=== PATIENT | female | born 1990 | race Caucasian/White ===

== ENCOUNTER 2017-06-13 21:03 | Emergency (ER) | payer MEDICAID ==
[2017-06-14] MEDS: SOD CHLORIDE 0.9% 1,000 ML IV (00:15)
[2017-06-14] MEDS: FAMOTIDINE 20 MG INJ IV (00:15)
[2017-06-14] MEDS: ONDANSETRON 4 MG INJ IV (00:15)
[2017-06-14 00:34] LABS: ADD MAN DIFF? NO
[2017-06-14 00:37] LABS: WHITE BLOOD COUNT 11.5 10^3/ul (4.8-10.8)
[2017-06-14 00:37] LABS: BASOPHILS % 0.3 % (0.0-2.0); EOSINOPHILS # 0.1 10^3/ul (0.0-0.5); EOSINOPHILS % 1.2 % (0.0-7.0); HEMATOCRIT 36.8 % (37.0-47.0); HEMOGLOBIN 13.1 g/dl (12.0-16.0); LYMPHOCYTES # 2.6 10^3/ul (0.8-2.9); LYMPHOCYTES % 22.4 % (15.0-51.0); MEAN CORPUSCULAR HEMOGLOBIN 31.2 pg (29.0-33.0); MEAN CORPUSCULAR HGB CONC 35.6 g/dl (32.0-37.0); MEAN CORPUSCULAR VOLUME 87.6 fl (82.0-101.0); MEAN PLATELET VOLUME 9.5 fl (7.4-10.4); MONOCYTE # 0.6 10^3/ul (0.3-0.9); MONOCYTES % 5.1 % (0.0-11.0); NEUTROPHIL # 8.1 10^3/ul (1.6-7.5); NEUTROPHILS % 70.4 % (39.0-77.0); PLATELET COUNT 222 10^3/UL (140-415); RED CELL DISTRIBUTION WIDTH 12.4 % (11.5-14.5)
[2017-06-14 00:53] LABS: ADD UMIC YES; UR ASCORBIC ACID NEGATIVE (NEGATIVE); UR BACTERIA FEW /HPF (NONE SEEN); UR BILIRUBIN (Dip) NEGATIVE (NEGATIVE); UR BLOOD (Dip) NEGATIVE (NEGATIVE); UR CLARITY CLOUDY (CLEAR); UR COLOR YELLOW (YELLOW); UR GLUCOSE (Dip) NEGATIVE (NEGATIVE); UR KETONES (Dip) NEGATIVE (NEGATIVE); UR LEUKOCYTE ESTERASE (Dip) 2+ Leu/ul (NEGATIVE); UR MUCUS MODERATE /HPF (NONE SEEN); UR NITRITE (Dip) POSITIVE (NEGATIVE); UR RBC 1 /HPF (0-5); UR SPECIFIC GRAVITY (Dip) 1.024 (1.003-1.030); UR SQUAMOUS EPITHELIAL CELL FEW /HPF (FEW); UR TOTAL PROTEIN (Dip) NEGATIVE (NEGATIVE); UR UROBILINOGEN (Dip) NEGATIVE (NEGATIVE); UR WBC 13 /HPF (0-5)
[2017-06-14 00:58] LABS: ALANINE AMINOTRANSFERASE 27 IU/L (13-69); ALBUMIN 4.5 g/dl (3.3-4.9); ALBUMIN/GLOBULIN RATIO 1.25; ALKALINE PHOSPHATASE 54 IU/L (42-121); ANION GAP 15 (8-16); ASPARTATE AMINO TRANSFERASE 21 IU/L (15-46); BILIRUBIN,INDIRECT 0.2 mg/dl (0-1.1); BILIRUBIN,TOTAL 0.2 mg/dl (0.2-1.3); BLOOD UREA NITROGEN 6 mg/dl (7-20); CALCIUM 9.9 mg/dl (8.4-10.2); CARBON DIOXIDE 25 mmol/L (21-31); CHLORIDE 103 mmol/L (97-110); CREATININE 0.47 mg/dl (0.44-1.00); GLUCOSE 83 mg/dl (70-220); LIPASE 50 U/L (23-300); POTASSIUM 4.2 mmol/L (3.5-5.1); SODIUM 139 mmol/L (135-144); TOTAL PROTEIN 8.1 g/dl (6.1-8.1)
[2017-06-14] MEDS: CEFTRIAXONE 1 GM/50 ML (PMX) 50 ML IVPB (02:10)
== END 2017-06-14 03:28 | disposition home or self-care (01) ==
LOC: FTE 21:03
DX: O21.0 Mild hyperemesis gravidarum (principal); O23.41 Unspecified infection of urinary tract in pregnancy, first trimester; R10.2 Pelvic and perineal pain; Z3A.13 13 weeks gestation of pregnancy
CPT/HCPCS: 36415; 76801; 80053; 81001; 83690; 84702; 85025; 86900; 86901; 96374; 96375; 99285-25

== ENCOUNTER 2017-10-17 17:05 | Inpatient (IN) | payer MEDICAID ==
[2017-10-17] MEDS: ACETAMINOPHEN 325 MG TAB PO ×2 (17:54→23:07)
[2017-10-17] MEDS: LACTATED RINGER'S 1,000 ML IV (17:54)
[2017-10-17] MEDS ORDERED: IBUPROFEN 600 MG TAB PO (18:00)
[2017-10-17] MEDS ORDERED: LIDOCAINE 1% (MPF) 30 ML INJ INJ (18:00)
[2017-10-17] MEDS ORDERED: CARBOPROST 250 MCG INJ IM (18:00)
[2017-10-17] MEDS ORDERED: METHYLERGONOVINE 0.2 MG INJ IM (18:00)
[2017-10-17] MEDS ORDERED: BUTORPHANOL 2 MG INJ IV (18:00)
[2017-10-17] MEDS ORDERED: MISOPROSTOL 200 MCG TAB PR (18:00)
[2017-10-17] MEDS ORDERED: OXYTOCIN 30 UNITS/LR 500 ML IV ×3 (18:00)
[2017-10-17] MEDS ORDERED: MAGNESIUM SULFATE 4 GM/100 ML 100 ML (18:26)
[2017-10-17] MEDS: MAGNESIUM SULFATE 4 GM/100 ML 100 ML IV (18:38)
[2017-10-17] MEDS: MAGNESIUM SULFATE 20 GM/500 ML 500 ML IV (19:17)
[2017-10-17 19:21] LABS: ADD UMIC YES; UR ASCORBIC ACID NEGATIVE (NEGATIVE); UR BACTERIA FEW /HPF (NONE SEEN); UR BILIRUBIN (Dip) NEGATIVE (NEGATIVE); UR BLOOD (Dip) 2+ mg/dL (NEGATIVE); UR CLARITY CLOUDY (CLEAR); UR COLOR YELLOW (YELLOW); UR GLUCOSE (Dip) NEGATIVE (NEGATIVE); UR KETONES (Dip) 1+ mg/dL (NEGATIVE); UR LEUKOCYTE ESTERASE (Dip) 3+ Leu/ul (NEGATIVE); UR MUCUS FEW /HPF (NONE SEEN); UR NITRITE (Dip) NEGATIVE (NEGATIVE); UR RBC 13 /HPF (0-5); UR SPECIFIC GRAVITY (Dip) 1.014 (1.003-1.030); UR SQUAMOUS EPITHELIAL CELL FEW /HPF (FEW); UR TOTAL PROTEIN (Dip) 2+ mg/dl (NEGATIVE); UR UROBILINOGEN (Dip) NEGATIVE (NEGATIVE); UR WBC 77 /HPF (0-5)
[2017-10-17 19:29] LABS: ADD MAN DIFF? NO
[2017-10-17 19:33] LABS: WHITE BLOOD COUNT 12.6 10^3/ul (4.8-10.8)
[2017-10-17 19:33] LABS: BASOPHILS % 0.2 % (0.0-2.0); HEMATOCRIT 36.5 % (37.0-47.0); HEMOGLOBIN 12.2 g/dl (12.0-16.0); LYMPHOCYTES # 0.9 10^3/ul (0.8-2.9); MEAN CORPUSCULAR HEMOGLOBIN 30.1 pg (29.0-33.0); MEAN CORPUSCULAR HGB CONC 33.4 g/dl (32.0-37.0); MEAN CORPUSCULAR VOLUME 90.1 fl (82.0-101.0); MEAN PLATELET VOLUME 10.3 fl (7.4-10.4); MONOCYTE # 0.3 10^3/ul (0.3-0.9); MONOCYTES % 2.3 % (0.0-11.0); NEUTROPHIL # 11.3 10^3/ul (1.6-7.5); NEUTROPHILS % 89.6 % (39.0-77.0); PLATELET COUNT 179 10^3/UL (140-415); RED BLOOD COUNT 4.05 10^6/ul (4.20-5.40)
[2017-10-17] MEDS: AMPICILLIN 2 GM/NS (PMX) 100 ML IVPB (19:42)
[2017-10-17 19:53] LABS: PROTIME 13.3 Sec (11.9-14.9)
[2017-10-17 19:54] LABS: PARTIAL THROMBOPLASTIN TIME 30.5 Sec (25.0-35.0)
[2017-10-17 20:02] LABS: ALANINE AMINOTRANSFERASE 17 IU/L (13-69); ALBUMIN/GLOBULIN RATIO 1.11; ALKALINE PHOSPHATASE 175 IU/L (42-121); ANION GAP 22 (8-16); ASPARTATE AMINO TRANSFERASE 26 IU/L (15-46); BILIRUBIN,INDIRECT 0.7 mg/dl (0-1.1); BILIRUBIN,TOTAL 0.7 mg/dl (0.2-1.3); BLOOD UREA NITROGEN 5 mg/dl (7-20); CALCIUM 8.9 mg/dl (8.4-10.2); CARBON DIOXIDE 16 mmol/L (21-31); CHLORIDE 103 mmol/L (97-110); CREATININE 0.57 mg/dl (0.44-1.00); GLUCOSE 91 mg/dl (70-220); POTASSIUM 4.3 mmol/L (3.5-5.1); SODIUM 137 mmol/L (135-144); TOTAL PROTEIN 7.6 g/dl (6.1-8.1)
[2017-10-17 20:39] LABS: HEPATITIS B SURFACE ANTIGEN NEGATIVE (NEGATIVE)
[2017-10-17] MEDS: GENTAMICIN 120 MG/NS (PMX) 100 ML IVPB (21:08)
[2017-10-17] MEDS: TERBUTALINE 1 MG/ML INJ SC (22:30)
[2017-10-18] MEDS: CLINDAMYCIN 900 MG/D5W (PMX) 50 ML IVPB ×2 (00:24→09:01)
[2017-10-18 00:27] LABS: ADD MAN DIFF? NO
[2017-10-18 00:30] LABS: ABNORMAL IP MESSAGE 1; BASOPHILS % 0.2 % (0.0-2.0); HEMATOCRIT 31.2 % (37.0-47.0); HEMOGLOBIN 10.6 g/dl (12.0-16.0); LYMPHOCYTES # 0.4 10^3/ul (0.8-2.9); LYMPHOCYTES % 3.4 % (15.0-51.0); MEAN CORPUSCULAR HEMOGLOBIN 30.5 pg (29.0-33.0); MEAN CORPUSCULAR VOLUME 89.7 fl (82.0-101.0); MEAN PLATELET VOLUME 9.6 fl (7.4-10.4); MONOCYTE # 0.3 10^3/ul (0.3-0.9); NEUTROPHIL # 11.7 10^3/ul (1.6-7.5); NEUTROPHILS % 93.5 % (39.0-77.0); PLATELET COUNT 140 10^3/UL (140-415); RED BLOOD COUNT 3.48 10^6/ul (4.20-5.40)
[2017-10-18 00:30] LABS: WHITE BLOOD COUNT 12.5 10^3/ul (4.8-10.8)
[2017-10-18 00:41] LABS: POSITIVE DIFF @See below
[2017-10-18 00:48] LABS: MAGNESIUM 5.6 mg/dl (1.7-2.5)
[2017-10-18] MEDS: ACETAMINOPHEN 1000MG/100ML IV 100 ML IVPB (01:37)
[2017-10-18] MEDS: AMPICILLIN 2 GM/NS (PMX) 100 ML IVPB ×4 (02:25→19:58)
[2017-10-18 02:33] LABS: LACTIC ACID 3.9 mmol/L (0.5-2.0)
[2017-10-18] MEDS: GENTAMICIN 80 MG/NS (PMX) 50 ML IVPB ×3 (05:13→21:24)
[2017-10-18] MEDS: MAGNESIUM SULFATE 20 GM/500 ML 500 ML IV ×2 (05:20→16:08)
[2017-10-18] MEDS: LACTATED RINGER'S 1,000 ML IV (06:43)
[2017-10-18 07:44] LABS: MAGNESIUM 6.5 mg/dl (1.7-2.5)
[2017-10-18] MEDS: BETAMET NA PHOS/AC(6 MG/ML) 5ML INJ IM (10:37)
[2017-10-18 13:13] LABS: MAGNESIUM 6.3 mg/dl (1.7-2.5)
[2017-10-18 18:22] LABS: MAGNESIUM 5.9 mg/dl (1.7-2.5)
[2017-10-18 20:56] LABS: RAPID PLASMA REAGIN NONREACTIVE (NR)
[2017-10-19] MEDS: LACTATED RINGER'S 1,000 ML IV ×2 (00:08→13:09)
[2017-10-19] MEDS: AMPICILLIN 2 GM/NS (PMX) 100 ML IVPB ×3 (02:02→14:15)
[2017-10-19] MEDS: GENTAMICIN 80 MG/NS (PMX) 50 ML IVPB ×2 (04:48→13:08)
[2017-10-19] MEDS: MAGNESIUM SULFATE 20 GM/500 ML 500 ML IV (04:50)
[2017-10-19 06:21] LABS: ADD MAN DIFF? NO
[2017-10-19 06:24] LABS: BASOPHILS % 0.1 % (0.0-2.0); HEMATOCRIT 28.5 % (37.0-47.0); HEMOGLOBIN 9.7 g/dl (12.0-16.0); LYMPHOCYTES # 0.6 10^3/ul (0.8-2.9); LYMPHOCYTES % 6.6 % (15.0-51.0); MEAN CORPUSCULAR HEMOGLOBIN 30.6 pg (29.0-33.0); MEAN CORPUSCULAR VOLUME 89.9 fl (82.0-101.0); MONOCYTE # 0.6 10^3/ul (0.3-0.9); MONOCYTES % 6.5 % (0.0-11.0); NEUTROPHIL # 7.9 10^3/ul (1.6-7.5); NEUTROPHILS % 85.8 % (39.0-77.0); PLATELET COUNT 128 10^3/UL (140-415); RED BLOOD COUNT 3.17 10^6/ul (4.20-5.40); RED CELL DISTRIBUTION WIDTH 11.9 % (11.5-14.5)
[2017-10-19 06:24] LABS: WHITE BLOOD COUNT 9.2 10^3/ul (4.8-10.8)
[2017-10-19] MEDS: BETAMET NA PHOS/AC(6 MG/ML) 5ML INJ IM (10:08)
[2017-10-19 15:51] LABS: MAGNESIUM 5.2 mg/dl (1.7-2.5)
[2017-10-19] MEDS: SOD CHLORIDE 0.9% 1,000 ML IV (17:05)
[2017-10-19] MEDS: NIFEdipine 10 MG CAP PO (17:08)
[2017-10-19] MEDS: CEFTRIAXONE 2 GM/50 ML (PMX) 50 ML IVPB (17:19)
[2017-10-20] MEDS: SOD CHLORIDE 0.9% 1,000 ML IV ×2 (06:00→16:31)
[2017-10-20] MEDS: NIFEdipine 10 MG CAP PO ×4 (06:00→18:46)
[2017-10-20 06:18] LABS: ADD MAN DIFF? NO
[2017-10-20 06:28] LABS: WHITE BLOOD COUNT 9.5 10^3/ul (4.8-10.8)
[2017-10-20 06:28] LABS: BASOPHILS % 0.1 % (0.0-2.0); HEMATOCRIT 27.7 % (37.0-47.0); HEMOGLOBIN 9.2 g/dl (12.0-16.0); LYMPHOCYTES # 0.8 10^3/ul (0.8-2.9); LYMPHOCYTES % 8.2 % (15.0-51.0); MEAN CORPUSCULAR HEMOGLOBIN 30.1 pg (29.0-33.0); MEAN CORPUSCULAR HGB CONC 33.2 g/dl (32.0-37.0); MEAN CORPUSCULAR VOLUME 90.5 fl (82.0-101.0); MEAN PLATELET VOLUME 9.9 fl (7.4-10.4); MONOCYTE # 0.8 10^3/ul (0.3-0.9); MONOCYTES % 8.5 % (0.0-11.0); NEUTROPHIL # 7.8 10^3/ul (1.6-7.5); NEUTROPHILS % 81.7 % (39.0-77.0); PLATELET COUNT 140 10^3/UL (140-415); RED BLOOD COUNT 3.06 10^6/ul (4.20-5.40); RED CELL DISTRIBUTION WIDTH 12.3 % (11.5-14.5)
[2017-10-20] MEDS: TERBUTALINE 1 MG/ML INJ SC ×2 (07:12→09:48)
[2017-10-20] MEDS: GUAIFENESIN/DM 5ML CUP PO ×4 (09:45→21:05)
[2017-10-20 16:10] LABS: LACTIC ACID 1.5 mmol/L (0.5-2.0)
[2017-10-20] MEDS: CEFTRIAXONE 2 GM/50 ML (PMX) 50 ML IVPB (16:31)
[2017-10-21] MEDS: NIFEdipine 10 MG CAP PO ×5 (00:29→23:45)
[2017-10-21] MEDS: GUAIFENESIN/DM 5ML CUP PO ×6 (01:00→21:33)
[2017-10-21] MEDS: SOD CHLORIDE 0.9% 1,000 ML IV ×2 (05:12→13:26)
[2017-10-21 08:15] LABS: ADD MAN DIFF? NO
[2017-10-21 08:27] LABS: WHITE BLOOD COUNT 8.7 10^3/ul (4.8-10.8)
[2017-10-21 08:27] LABS: BASOPHILS % 0.1 % (0.0-2.0); EOSINOPHILS % 0.1 % (0.0-7.0); HEMATOCRIT 27.8 % (37.0-47.0); HEMOGLOBIN 9.1 g/dl (12.0-16.0); LYMPHOCYTES # 1.2 10^3/ul (0.8-2.9); LYMPHOCYTES % 13.5 % (15.0-51.0); MEAN CORPUSCULAR HEMOGLOBIN 30.1 pg (29.0-33.0); MEAN CORPUSCULAR HGB CONC 32.7 g/dl (32.0-37.0); MEAN CORPUSCULAR VOLUME 92.1 fl (82.0-101.0); MONOCYTE # 0.7 10^3/ul (0.3-0.9); MONOCYTES % 8.5 % (0.0-11.0); NEUTROPHIL # 6.7 10^3/ul (1.6-7.5); NEUTROPHILS % 76.3 % (39.0-77.0); NUCLEATED RED BLOOD CELLS% 0.2 /100WBC (0.0-0.0); PLATELET COUNT 144 10^3/UL (140-415); RED BLOOD COUNT 3.02 10^6/ul (4.20-5.40); RED CELL DISTRIBUTION WIDTH 12.2 % (11.5-14.5)
[2017-10-21] MEDS: CEFTRIAXONE 2 GM/50 ML (PMX) 50 ML IVPB (17:21)
[2017-10-22] MEDS: SOD CHLORIDE 0.9% 1,000 ML IV ×2 (00:10→12:18)
[2017-10-22] MEDS: GUAIFENESIN/DM 5ML CUP PO ×6 (01:00→20:56)
[2017-10-22] MEDS: NIFEdipine 10 MG CAP PO ×4 (05:35→23:39)
[2017-10-22] MEDS: CEFTRIAXONE 2 GM/50 ML (PMX) 50 ML IVPB (16:50)
[2017-10-23] MEDS: SOD CHLORIDE 0.9% 1,000 ML IV ×2 (00:55→14:35)
[2017-10-23] MEDS: GUAIFENESIN/DM 5ML CUP PO ×5 (00:59→17:35)
[2017-10-23] MEDS: NIFEdipine 10 MG CAP PO ×3 (05:57→17:53)
[2017-10-23] MEDS ORDERED: CIPROFLOXACIN 500 MG TAB PO (22:00)
== END 2017-10-23 19:20 | disposition home or self-care (01) | DRG 781 ==
LOC: OBT 17:05 → L-D 10-19 20:11 → OBT 17:47 → PP1 10-20 22:52 → L-D 17:47
DX: O23.03 Infections of kidney in pregnancy, third trimester (principal); J98.11 Atelectasis; Z3A.34 34 weeks gestation of pregnancy
CPT/HCPCS: 36415; 71046; 76815; 76818; 80053; 81001; 82962; 83605; 83735; 85025; 85610; 85730; 86592; 86850; 86900; 86901; 87040; 87086; 87340; 96360

== ENCOUNTER 2017-11-13 21:51 | Outpatient (CLI) | payer MEDICAID ==
[2017-11-13] MEDS ORDERED: TERBUTALINE 1 ML (22:46)
[2017-11-13] MEDS: LACTATED RINGER'S 1,000 ML IV ×2 (22:59→23:51)
[2017-11-13] MEDS: TERBUTALINE 1 MG/ML INJ SC (23:02)
[2017-11-13 23:21] LABS: ADD UMIC NO; UR ASCORBIC ACID 40 mg/dL (NEGATIVE); UR BILIRUBIN (Dip) NEGATIVE (NEGATIVE); UR BLOOD (Dip) NEGATIVE (NEGATIVE); UR CLARITY CLEAR (CLEAR); UR COLOR YELLOW (YELLOW); UR GLUCOSE (Dip) 1+ mg/dL (NEGATIVE); UR KETONES (Dip) NEGATIVE (NEGATIVE); UR LEUKOCYTE ESTERASE (Dip) NEGATIVE Leu/ul (NEGATIVE); UR NITRITE (Dip) NEGATIVE (NEGATIVE); UR SPECIFIC GRAVITY (Dip) 1.017 (1.003-1.030); UR TOTAL PROTEIN (Dip) NEGATIVE (NEGATIVE); UR UROBILINOGEN (Dip) NEGATIVE (NEGATIVE)
[2017-11-14] MEDS: TERBUTALINE 1 MG/ML INJ SC (00:49)
== END 2017-11-14 02:45 | disposition home or self-care (01) ==
LOC: OBT 21:51 → L-D 21:51
DX: O62.9 Abnormality of forces of labor, unspecified (principal); Z3A.34 34 weeks gestation of pregnancy
CPT/HCPCS: 36415; 81003; 87086; 96360; 96361; 96372

== ENCOUNTER 2017-11-20 11:24 | Outpatient (CLI) | payer MEDICAID ==
[2017-11-20 12:31] LABS: ADD UMIC YES; UR AMORPHOUS CRYSTAL FEW /HPF (NONE SEEN); UR ASCORBIC ACID 40 mg/dL (NEGATIVE); UR BACTERIA MANY /HPF (NONE SEEN); UR BILIRUBIN (Dip) NEGATIVE (NEGATIVE); UR BLOOD (Dip) NEGATIVE (NEGATIVE); UR CLARITY CLOUDY (CLEAR); UR COLOR YELLOW (YELLOW); UR GLUCOSE (Dip) NEGATIVE (NEGATIVE); UR KETONES (Dip) NEGATIVE (NEGATIVE); UR LEUKOCYTE ESTERASE (Dip) 2+ Leu/ul (NEGATIVE); UR NITRITE (Dip) NEGATIVE (NEGATIVE); UR RBC 4 /HPF (0-5); UR SPECIFIC GRAVITY (Dip) 1.014 (1.003-1.030); UR SQUAMOUS EPITHELIAL CELL MODERATE /HPF (FEW); UR TOTAL PROTEIN (Dip) NEGATIVE (NEGATIVE); UR UROBILINOGEN (Dip) 1+ mg/dL (NEGATIVE); UR WBC 13 /HPF (0-5)
[2017-11-20] MEDS: BETAMET NA PHOS/AC(6 MG/ML) 5ML INJ IM (12:44)
[2017-11-20] MEDS: LACTATED RINGER'S 1,000 ML IV (12:44)
[2017-11-20] MEDS: TERBUTALINE 1 MG/ML INJ SC ×2 (12:44→13:51)
[2017-11-20 12:49] LABS: ADD MAN DIFF? NO
[2017-11-20 12:50] LABS: BASOPHIL # 0.1 10^3/ul (0.0-0.1); BASOPHILS % 0.6 % (0.0-2.0); EOSINOPHILS # 0.1 10^3/ul (0.0-0.5); EOSINOPHILS % 1.6 % (0.0-7.0); HEMATOCRIT 31.4 % (37.0-47.0); HEMOGLOBIN 10.3 g/dl (12.0-16.0); LYMPHOCYTES # 1.7 10^3/ul (0.8-2.9); MEAN CORPUSCULAR HEMOGLOBIN 28.5 pg (29.0-33.0); MEAN CORPUSCULAR HGB CONC 32.8 g/dl (32.0-37.0); MEAN CORPUSCULAR VOLUME 86.7 fl (82.0-101.0); MONOCYTE # 0.6 10^3/ul (0.3-0.9); MONOCYTES % 7.4 % (0.0-11.0); NEUTROPHIL # 5.8 10^3/ul (1.6-7.5); NEUTROPHILS % 69.1 % (39.0-77.0); PLATELET COUNT 165 10^3/UL (140-415); RED BLOOD COUNT 3.62 10^6/ul (4.20-5.40); RED CELL DISTRIBUTION WIDTH 12.8 % (11.5-14.5)
[2017-11-20 12:50] LABS: WHITE BLOOD COUNT 8.4 10^3/ul (4.8-10.8)
[2017-11-20 13:12] LABS: ALANINE AMINOTRANSFERASE 22 IU/L (13-69); ALBUMIN 3.2 g/dl (3.3-4.9); ALBUMIN/GLOBULIN RATIO 1.03; ALKALINE PHOSPHATASE 205 IU/L (42-121); ANION GAP 11 (8-16); ASPARTATE AMINO TRANSFERASE 27 IU/L (15-46); BILIRUBIN,INDIRECT 0.3 mg/dl (0-1.1); BILIRUBIN,TOTAL 0.3 mg/dl (0.2-1.3); BLOOD UREA NITROGEN 7 mg/dl (7-20); CALCIUM 8.7 mg/dl (8.4-10.2); CARBON DIOXIDE 22 mmol/L (21-31); CHLORIDE 110 mmol/L (97-110); CREATININE 0.75 mg/dl (0.44-1.00); GLUCOSE 92 mg/dl (70-220); POTASSIUM 4.3 mmol/L (3.5-5.1); SODIUM 139 mmol/L (135-144); TOTAL PROTEIN 6.3 g/dl (6.1-8.1)
[2017-11-20 13:27] LABS: PROTIME 12.2 Sec (11.9-14.9)
[2017-11-20 13:28] LABS: PARTIAL THROMBOPLASTIN TIME 26.8 Sec (25.0-35.0)
== END 2017-11-20 15:40 | disposition home or self-care (01) ==
LOC: OBT 11:24 → L-D 11:24 → OBT 15:40
DX: O62.9 Abnormality of forces of labor, unspecified (principal); Z3A.36 36 weeks gestation of pregnancy
CPT/HCPCS: 36415; 76818; 80053; 81001; 84560; 85025; 85384; 85610; 85730; 87086; 96360; 96361; 96372

== ENCOUNTER 2017-11-21 11:53 | Outpatient (CLI) | payer MEDICAID ==
[2017-11-21] MEDS: BETAMET NA PHOS/AC(6 MG/ML) 5ML INJ IM (12:25)
== END 2017-11-21 13:00 | disposition home or self-care (01) ==
LOC: OBT 11:53 → L-D 11:53 → OBT 13:00
DX: O36.8930 Maternal care for other specified fetal problems, third trimester, not applicable or unspecified (principal); Z3A.36 36 weeks gestation of pregnancy
CPT/HCPCS: 96372

== ENCOUNTER 2017-11-25 16:13 | Outpatient (CLI) | payer MEDICAID ==
[2017-11-25] MEDS: TERBUTALINE 1 MG/ML INJ SC (19:13)
[2017-11-25 19:39] LABS: ADD UMIC YES; UR ASCORBIC ACID NEGATIVE (NEGATIVE); UR BACTERIA FEW /HPF (NONE SEEN); UR BILIRUBIN (Dip) NEGATIVE (NEGATIVE); UR BLOOD (Dip) NEGATIVE (NEGATIVE); UR CLARITY CLOUDY (CLEAR); UR COLOR YELLOW (YELLOW); UR GLUCOSE (Dip) NEGATIVE (NEGATIVE); UR KETONES (Dip) TRACE mg/dL (NEGATIVE); UR LEUKOCYTE ESTERASE (Dip) 1+ Leu/ul (NEGATIVE); UR MUCUS FEW /HPF (NONE SEEN); UR NITRITE (Dip) NEGATIVE (NEGATIVE); UR RBC 1 /HPF (0-5); UR SPECIFIC GRAVITY (Dip) 1.023 (1.003-1.030); UR SQUAMOUS EPITHELIAL CELL MODERATE /HPF (FEW); UR TOTAL PROTEIN (Dip) NEGATIVE (NEGATIVE); UR UROBILINOGEN (Dip) 2+ mg/dL (NEGATIVE); UR WBC 17 /HPF (0-5)
== END 2017-11-25 21:17 | disposition home or self-care (01) ==
LOC: OBT 16:13 → L-D 16:14 → OBT 21:17
DX: O62.9 Abnormality of forces of labor, unspecified (principal); Z3A.36 36 weeks gestation of pregnancy
CPT/HCPCS: 81001; 87086

== ENCOUNTER 2017-11-30 07:39 | Inpatient (IN) | payer MEDICAID ==
[2017-11-30] MEDS ORDERED: MINERAL OIL LIGHT 10 ML VIAL TOP (09:00)
[2017-11-30] MEDS ORDERED: IBUPROFEN 600 MG TAB PO (09:00)
[2017-11-30] MEDS ORDERED: CARBOPROST 250 MCG INJ IM (09:00)
[2017-11-30] MEDS ORDERED: OXYTOCIN 30 UNITS/LR 500 ML IV (09:00)
[2017-11-30] MEDS ORDERED: LIDOCAINE 1% (MPF) 30 ML INJ INJ (09:00)
[2017-11-30] MEDS ORDERED: METHYLERGONOVINE 0.2 MG INJ IM (09:00)
[2017-11-30] MEDS ORDERED: MISOPROSTOL 200 MCG TAB PR (09:00)
[2017-11-30] MEDS: LACTATED RINGER'S 1,000 ML IV* ×3 (09:18→23:12)
[2017-11-30 09:23] LABS: ADD MAN DIFF? NO
[2017-11-30 09:31] LABS: BASOPHIL # 0.1 10^3/ul (0.0-0.1); BASOPHILS % 0.4 % (0.0-2.0); EOSINOPHILS # 0.1 10^3/ul (0.0-0.5); EOSINOPHILS % 0.9 % (0.0-7.0); HEMATOCRIT 33.1 % (37.0-47.0); HEMOGLOBIN 10.9 g/dl (12.0-16.0); LYMPHOCYTES # 2.6 10^3/ul (0.8-2.9); LYMPHOCYTES % 20.5 % (15.0-51.0); MEAN CORPUSCULAR HEMOGLOBIN 28.4 pg (29.0-33.0); MEAN CORPUSCULAR HGB CONC 32.9 g/dl (32.0-37.0); MEAN CORPUSCULAR VOLUME 86.2 fl (82.0-101.0); MEAN PLATELET VOLUME 11.5 fl (7.4-10.4); MONOCYTES % 7.9 % (0.0-11.0); NEUTROPHIL # 8.7 10^3/ul (1.6-7.5); NEUTROPHILS % 68.6 % (39.0-77.0); PLATELET COUNT 143 10^3/UL (140-415); RED BLOOD COUNT 3.84 10^6/ul (4.20-5.40); RED CELL DISTRIBUTION WIDTH 13.6 % (11.5-14.5)
[2017-11-30 09:31] LABS: WHITE BLOOD COUNT 12.6 10^3/ul (4.8-10.8)
[2017-11-30 09:52] LABS: INR 0.87; PARTIAL THROMBOPLASTIN TIME 26.9 Sec (25.0-35.0); PROTIME 11.9 Sec (11.9-14.9); PT RATIO 0.9
[2017-11-30 21:42] LABS: HEPATITIS B SURFACE ANTIGEN NEGATIVE (NEGATIVE)
[2017-11-30 21:43] LABS: RAPID PLASMA REAGIN NONREACTIVE (NR)
[2017-11-30 23:22] LABS: ADD UMIC YES; UR AMORPHOUS CRYSTAL FEW /HPF (NONE SEEN); UR ASCORBIC ACID NEGATIVE (NEGATIVE); UR BACTERIA FEW /HPF (NONE SEEN); UR BILIRUBIN (Dip) NEGATIVE (NEGATIVE); UR BLOOD (Dip) 3+ mg/dL (NEGATIVE); UR CLARITY SLIGHTLY CLOUDY (CLEAR); UR COLOR YELLOW (YELLOW); UR GLUCOSE (Dip) NEGATIVE (NEGATIVE); UR KETONES (Dip) NEGATIVE (NEGATIVE); UR LEUKOCYTE ESTERASE (Dip) 3+ Leu/ul (NEGATIVE); UR NITRITE (Dip) NEGATIVE (NEGATIVE); UR RBC 69 /HPF (0-5); UR SPECIFIC GRAVITY (Dip) 1.008 (1.003-1.030); UR SQUAMOUS EPITHELIAL CELL MODERATE /HPF (FEW); UR TOTAL PROTEIN (Dip) NEGATIVE (NEGATIVE); UR UROBILINOGEN (Dip) NEGATIVE (NEGATIVE); UR WBC 85 /HPF (0-5)
[2017-12-01] MEDS: LACTATED RINGER'S 1,000 ML IV* ×3 (07:22→22:22)
[2017-12-01] MEDS: URSODIOL 300 MG CAP PO (11:09)
[2017-12-01] MEDS ORDERED: FENTAnyl 2MCG/ML-ROPIV 0.2% 100 ML (12:30)
[2017-12-01] MEDS ORDERED: LACTATED RINGER'S 1,000 ML IV (15:13)
[2017-12-01] MEDS ORDERED: IBUPROFEN 600 MG TAB PO ×2 (15:30→21:00)
[2017-12-01] MEDS ORDERED: FENTAnyl 2MCG/ML-ROPIV 0.2% 100 ML BAG EPI (16:00)
[2017-12-01] MEDS ORDERED: NALOXONE (0.4 MG/ML) INJ IV (16:00)
[2017-12-01] MEDS: OXYTOCIN 30 UNITS/LR 500 ML IV ×2 (17:06→17:48)
[2017-12-01 18:07] LABS: ALANINE AMINOTRANSFERASE 22 IU/L (13-69); ALBUMIN 2.9 g/dl (3.3-4.9); ALBUMIN/GLOBULIN RATIO 0.96; ALKALINE PHOSPHATASE 228 IU/L (42-121); ANION GAP 13 (8-16); ASPARTATE AMINO TRANSFERASE 30 IU/L (15-46); BILIRUBIN,INDIRECT 0.6 mg/dl (0-1.1); BILIRUBIN,TOTAL 0.6 mg/dl (0.2-1.3); BLOOD UREA NITROGEN 9 mg/dl (7-20); CALCIUM 8.8 mg/dl (8.4-10.2); CARBON DIOXIDE 18 mmol/L (21-31); CHLORIDE 112 mmol/L (97-110); CREATININE 0.62 mg/dl (0.44-1.00); GLUCOSE 96 mg/dl (70-220); SODIUM 139 mmol/L (135-144); TOTAL PROTEIN 5.9 g/dl (6.1-8.1); URIC ACID 7.2 mg/dl (3.1-7.9)
[2017-12-01] MEDS: IBUPROFEN 600 MG TAB PO (20:46)
[2017-12-01] MEDS: BENZOCAINE 20% 56 ML SPRAY TOP (20:46)
[2017-12-01] MEDS: SENNA/DOCUSATE NA (8.6MG/50MG) TAB PO (20:46)
[2017-12-01] MEDS: WITCH HAZEL/GLYCERIN PAD PR (20:46)
[2017-12-01] MEDS: MAGNESIUM HYDROXIDE 30ML CUP PO (20:46)
[2017-12-01] MEDS: LANOLIN 7 GM TUBE TOP (20:46)
[2017-12-01] MEDS ORDERED: DIBUCAINE 1% 30 GM OINT PR (21:00)
[2017-12-01] MEDS ORDERED: MISOPROSTOL 200 MCG TAB PR (21:00)
[2017-12-01] MEDS ORDERED: HYDROCODONE/APAP (5/325) TAB PO ×2 (21:00)
[2017-12-01] MEDS ORDERED: METHYLERGONOVINE 0.2 MG INJ IM (21:00)
[2017-12-01] MEDS ORDERED: ZOLPIDEM 5 MG TAB PO (21:00)
[2017-12-01] MEDS ORDERED: OXYTOCIN 30 UNITS/LR 500 ML IV (21:00)
[2017-12-01] MEDS ORDERED: CARBOPROST 250 MCG INJ IM (21:00)
[2017-12-02] MEDS: CEPHALEXIN 500 MG CAP PO ×5 (00:14→23:54)
[2017-12-02] MEDS: IBUPROFEN 600 MG TAB PO ×4 (05:57→21:00)
[2017-12-02] MEDS: LACTATED RINGER'S 1,000 ML IV* (06:10)
[2017-12-02] MEDS: SENNA/DOCUSATE NA (8.6MG/50MG) TAB PO ×2 (09:10→21:00)
[2017-12-02] MEDS: MAGNESIUM HYDROXIDE 30ML CUP PO ×2 (09:10→21:00)
[2017-12-02 11:55] LABS: ADD MAN DIFF? NO
[2017-12-02 12:15] LABS: BASOPHIL # 0.1 10^3/ul (0.0-0.1); BASOPHILS % 0.3 % (0.0-2.0); EOSINOPHILS % 0.3 % (0.0-7.0); HEMOGLOBIN 9.8 g/dl (12.0-16.0); LYMPHOCYTES # 2.3 10^3/ul (0.8-2.9); LYMPHOCYTES % 15.1 % (15.0-51.0); MEAN CORPUSCULAR HEMOGLOBIN 28.3 pg (29.0-33.0); MEAN CORPUSCULAR HGB CONC 32.7 g/dl (32.0-37.0); MEAN CORPUSCULAR VOLUME 86.7 fl (82.0-101.0); MEAN PLATELET VOLUME 11.2 fl (7.4-10.4); MONOCYTE # 1.1 10^3/ul (0.3-0.9); MONOCYTES % 6.9 % (0.0-11.0); NEUTROPHIL # 11.8 10^3/ul (1.6-7.5); NEUTROPHILS % 76.5 % (39.0-77.0); PLATELET COUNT 119 10^3/UL (140-415); RED BLOOD COUNT 3.46 10^6/ul (4.20-5.40); RED CELL DISTRIBUTION WIDTH 13.7 % (11.5-14.5)
[2017-12-02 12:15] LABS: WHITE BLOOD COUNT 15.5 10^3/ul (4.8-10.8)
[2017-12-03] MEDS: IBUPROFEN 600 MG TAB PO ×2 (04:00→09:11)
[2017-12-03] MEDS: CEPHALEXIN 500 MG CAP PO ×2 (05:35→12:03)
[2017-12-03] MEDS: DIPHTH/TET/ACEL PERTUSS (ADULT) 0.5 ML VIAL IM* (09:11)
[2017-12-03] MEDS: VARICELLA VACCINE LIVE/PF 1,350 UNIT/0.5 ML ML SC* (09:11)
[2017-12-03] MEDS: SENNA/DOCUSATE NA (8.6MG/50MG) TAB PO (09:11)
[2017-12-03] MEDS: MEASLES,MUMPS,RUBELLA VACCINE INJ SC* (09:11)
[2017-12-03] MEDS: MAGNESIUM HYDROXIDE 30ML CUP PO (09:11)
[2017-12-03 11:07] LABS: ADD MAN DIFF? NO
[2017-12-03 11:13] LABS: BASOPHILS % 0.3 % (0.0-2.0); EOSINOPHILS # 0.1 10^3/ul (0.0-0.5); EOSINOPHILS % 0.4 % (0.0-7.0); MEAN CORPUSCULAR HEMOGLOBIN 28.5 pg (29.0-33.0); MEAN CORPUSCULAR HGB CONC 32.1 g/dl (32.0-37.0); MEAN CORPUSCULAR VOLUME 88.6 fl (82.0-101.0); MONOCYTE # 0.7 10^3/ul (0.3-0.9); MONOCYTES % 6.1 % (0.0-11.0); NEUTROPHILS % 75.3 % (39.0-77.0); PLATELET COUNT 129 10^3/UL (140-415); RED BLOOD COUNT 3.16 10^6/ul (4.20-5.40)
== END 2017-12-03 14:25 | disposition home or self-care (01) | DRG 775 ==
LOC: OBT 07:39 → PP1 12-01 19:58 → L-D 07:40 → OBT 08:17 → L-D 08:17
PROVIDERS: Obstetrics & Gynecology
PROC: 4A1HXCZ Monitoring of Products of Conception, Cardiac Rate, External Approach (ICD-10-PCS; 2017-11-30)
PROC: 10E0XZZ Delivery of Products of Conception, External Approach (ICD-10-PCS; principal; 2017-12-01)
PROC: 0KQM0ZZ Repair Perineum Muscle, Open Approach (ICD-10-PCS; 2017-12-01)
DX: O70.1 Second degree perineal laceration during delivery (principal); Z37.0 Single live birth; Z3A.37 37 weeks gestation of pregnancy
CPT/HCPCS: 62319; 80053; 81001; 84560; 85025; 85384; 85610; 85730; 86592; 86900; 86901; 87086; 87340; 99464